=== PATIENT | female | born 1975 | race Two or more races ===

== ENCOUNTER → 2017-02-21 | Outpatient (REF) | payer OTHER | LOC: M SFHCPLAZ 11:09 | PROVIDERS: ATTEND Physician Assistant Medical | DX: R07.9 Chest pain, unspecified (principal) ==

== ENCOUNTER → 2018-03-06 | Outpatient (CLI) | payer OTHER | LOC: M SMT 14:31 | DX: J01.11 Acute recurrent frontal sinusitis (principal) | CPT/HCPCS: 71046 ==

== ENCOUNTER → 2018-04-16 | Outpatient (CLI) | payer OTHER ==
[2018-04-16 20:01] LABS: RHEUMATOID FACTOR QUANT < 10.0 IU/ML (<15.0)
[2018-04-16 20:01] LABS: C REACTIVE PROTEIN QUANTITATIV < 0.30 MG/DL (0.00-0.30)
[2018-04-16 20:09] LABS: ERYTHROCYTE SEDIMENTATION RATE 8 mm/hr (0-20)
[2018-04-24 00:06] LABS: HLA-B27 Negative (.)
[2018-04-24 00:06] LABS: CYCLIC CITRULLINATED PEPTIDE 10 units (0-19)
== END ==
LOC: M WUC 16:17
DX: M54.5 Low back pain (principal)

== ENCOUNTER → 2018-04-18 | Outpatient (CLI) | payer OTHER | LOC: M WUC 16:15 | DX: M54.5 Low back pain (principal) ==

== ENCOUNTER → 2018-08-21 | Outpatient (REF) | payer OTHER ==
[2018-08-21 09:42] LABS: IONIZED CALCIUM 4.7 MG/DL (4.5-5.3)
[2018-08-21 10:47] LABS: ERYTHROCYTE SEDIMENTATION RATE 9 mm/hr (0-20)
[2018-08-21 11:35] LABS: ANION GAP 4 MEQ/L (8-16); BLOOD UREA NITROGEN 12 MG/DL (7-18); C REACTIVE PROTEIN QUANTITATIV < 0.30 MG/DL (0.00-0.30); CALCIUM LEVEL 9.1 MG/DL (8.5-10.1); CARBON DIOXIDE LEVEL 30 MEQ/L (21-32); CHLORIDE LEVEL 109 MEQ/L (98-107); CPK CREATINE PHOSPHOKINASE 91 U/L (26-192); GLOMERULAR FILTRATION RATE > 60.0 (>58); GLUCOSE, FASTING 87 MG/DL (70-100); IRON (FE) 38 UG/DL (50-170); PERCENT SATURATION 7.6 % (13.2-45.0); POTASSIUM SERUM 4.3 MEQ/L (3.5-5.1); SODIUM LEVEL 143 MEQ/L (136-145); TOTAL IRON BINDING CAPACITY 497 UG/DL (250-450)
[2018-08-21 11:42] LABS: TOTAL 25(OH) VITAMIN D 17.9 NG/ML (30.0-100.0)
[2018-08-21 11:43] LABS: FOLATE 11.2 NG/ML
[2018-08-28 00:11] LABS: ACETYLCHOLINE RCPTOR BINDING A < 0.03 nmol/L (0.00-0.24); COPPER PLASMA 145 ug/dL (72-166); SELENIUM LEVEL BLOOD 268 ug/L (100-340); VITAMIN E(ALPHA TOCOPHEROL) 8.6 mg/L (7.0-25.1); VITAMIN E(GAMMA TOCOPHEROL) 1.2 mg/L (0.5-5.5); VITAMIN K1 0.16 ng/mL (0.13-1.88); ZINC PLASMA 84 ug/dL (56-134)
[2018-08-28 00:11] LABS: VITAMIN A, RETINOL LEVEL 38.4 ug/dL (33.1-100.0)
== END ==
LOC: M SFHCPLAZ 08:37
DX: M62.89 Other specified disorders of muscle (principal); Z98.890 Other specified postprocedural states
CPT/HCPCS: 82525

== ENCOUNTER → 2018-08-21 | Outpatient (CLI) | payer OTHER | LOC: M RAD 11:18 | DX: R41.844 Frontal lobe and executive function deficit (principal); G25.3 Myoclonus | CPT/HCPCS: 70551 ==

== ENCOUNTER → 2019-01-06 | Outpatient (CLI) | payer OTHER | LOC: M LAB 06:57 | PROVIDERS: ATTEND Physician Assistant Medical | DX: E16.2 Hypoglycemia, unspecified (principal) ==

== ENCOUNTER → 2019-01-13 | Outpatient (CLI) | payer OTHER ==
[~2019-01-13] MED LIST: PRAM1TAB7 PO
[2019-01-13 19:29] LABS: BASO # 0.1 10^3/uL (0.0-0.2); BASO % 0.8 % (0.0-1.0); EOS # 0.1 10^3/uL (0.0-0.50); EOS % 1.8 % (0.0-3.0); HEMATOCRIT 33.2 % (36.0-47.0); HEMOGLOBIN 9.9 g/dl (12.0-15.5); LYMPH # 1.5 10^3/uL (1.5-4.5); MEAN CORPUSCULAR HEMOGLOBIN 24.9 pg (27.0-33.0); MEAN CORPUSCULAR HGB CONC 29.8 g/dl (32.0-36.5); MEAN CORPUSCULAR VOLUME 83.4 fl (80.0-96.0); MONO # 0.6 10^3/uL (0.0-0.8); NEUTROPHILS # 5.7 10^3/uL (1.8-7.7); NEUTROPHILS % 71.1 % (36.0-66.0); PLATELET COUNT, AUTOMATED 300 10^3/uL (150-450); RED BLOOD COUNT 3.98 10^6/uL (4.00-5.40)
== END ==
LOC: M WUC 16:40
PROVIDERS: ATTEND Physician Assistant Medical
DX: D50.8 Other iron deficiency anemias (principal); Z98.84 Bariatric surgery status

== ENCOUNTER 2019-01-16 10:28 | Outpatient (CLI) | payer OTHER ==
[2019-01-16] VITALS (7 sets, daily range): BP systolic 97–112; BP diastolic 53–66
[~2019-01-16] VITALS: Ht 165.1 cm; Wt 63.6 kg
[2019-01-16] MEDS ORDERED: IRON SUCROSE 25 MG in NS 50 ML IV ONE (11:15)
[2019-01-16] MEDS ORDERED: IRON SUCROSE 225 MG in NS 250 ML IV ONE (11:15)
[2019-01-16] MEDS ORDERED: PRAM1TAB7 PO (11:27)
== END 2019-01-16 15:45 | disposition home or self-care (01) ==
LOC: M INFU 10:28
PROVIDERS: ATTEND Physician Assistant Medical
DX: D50.9 Iron deficiency anemia, unspecified (principal); Z88.5 Allergy status to narcotic agent
CPT/HCPCS: 96365; 96366; J1756

== ENCOUNTER → 2019-01-17 | Outpatient (CLI) | payer OTHER ==
[2019-01-17 16:44] LABS: BASO % 0.6 % (0.0-1.0); EOS # 0.1 10^3/uL (0.0-0.50); HEMATOCRIT 33.6 % (36.0-47.0); LYMPH # 1.6 10^3/uL (1.5-4.5); LYMPH % 25.3 % (24.0-44.0); MEAN CORPUSCULAR HEMOGLOBIN 24.9 pg (27.0-33.0); MEAN CORPUSCULAR HGB CONC 29.8 g/dl (32.0-36.5); MEAN CORPUSCULAR VOLUME 83.6 fl (80.0-96.0); MONO # 0.5 10^3/uL (0.0-0.8); MONO % 7.5 % (0.0-5.0); NEUTROPHILS # 4.1 10^3/uL (1.8-7.7); NEUTROPHILS % 64.3 % (36.0-66.0); PLATELET COUNT, AUTOMATED 309 10^3/uL (150-450); RED BLOOD COUNT 4.02 10^6/uL (4.00-5.40); WHITE BLOOD COUNT 6.4 10^3/uL (4.0-10.0)
== END ==
LOC: M WUC 14:58
PROVIDERS: ATTEND Family Medicine
DX: D50.8 Other iron deficiency anemias (principal); E53.8 Deficiency of other specified B group vitamins

== ENCOUNTER → 2019-01-29 | Outpatient (REF) | payer OTHER ==
[2019-01-29 12:37] LABS: MAGNESIUM LEVEL 2.6 MG/DL (1.8-2.4)
[2019-01-29 12:46] LABS: TOTAL 25(OH) VITAMIN D 11.2 NG/ML (30.0-100.0)
== END ==
LOC: M SFHCPLAZ 10:43
PROVIDERS: ATTEND Physician Assistant Medical
DX: Z98.890 Other specified postprocedural states (principal); G43.111 Migraine with aura, intractable, with status migrainosus

== ENCOUNTER 2019-02-03 09:01 | Outpatient (CLI) | payer OTHER ==
[2019-02-03] VITALS (7 sets, daily range): BP systolic 89–118; BP diastolic 50–61
[~2019-02-03] VITALS: Ht 165.1 cm; Wt 63.0 kg
[2019-02-03] MEDS ORDERED: ACETAMINOPHEN 500 MG TAB PO ONE (09:30)
[2019-02-03] MEDS ORDERED: IRON SUCROSE 225 MG in NS 250 ML IV ONE (10:00)
[2019-02-03] MEDS ORDERED: IRON SUCROSE 25 MG in NS 50 ML IV ONE (10:00)
== END 2019-02-03 14:45 | disposition home or self-care (01) ==
LOC: M INFU 09:01
PROVIDERS: ATTEND Physician Assistant Medical
DX: E61.1 Iron deficiency (principal); Z88.5 Allergy status to narcotic agent
CPT/HCPCS: 96365; 96366; J1756

== ENCOUNTER → 2019-05-22 | Outpatient (CLI) | payer OTHER | LOC: M WUC 08:55 | PROVIDERS: ATTEND Family Medicine | DX: G43.111 Migraine with aura, intractable, with status migrainosus (principal) ==

== ENCOUNTER → 2019-06-06 | Outpatient (CLI) | payer OTHER ==
--- NOTE | 2019-06-06 13:40 | REP ---
MAXILLOFACIAL CT STUDY WITHOUT CONTRAST: HISTORY: Paranasal sinus disease. COMPARISON: MRI study of the brain August 21, 2018. CT FINDINGS: There is mild to moderate mucosal thickening affecting the maxillary sinuses bilaterally. This appears somewhat more prominent than on the August 2018 MRI study. The paranasal sinuses are otherwise clear. Mastoid aeration is normal and symmetric. No intraorbital, deep facial, or intracranial soft tissue abnormality is seen. Coronal images demonstrate that the ostiomeatal complexes are patent bilaterally. There is some superomedial mucosal thickening in the left maxillary sinus which is adjacent to the left ostiomeatal complex just posterior to it. The nasal ethmoid recesses are intact. Nasal septum is in the midline. No nasal polyp is appreciated. IMPRESSION: Mild bilateral maxillary sinus mucosal thickening. Electronically Signed by Octavio Rios MD 06/06/2019 03:47 P
== END ==
LOC: M RAD 10:28
PROVIDERS: ATTEND Nurse Practitioner Adult Health
DX: J34.9 Unspecified disorder of nose and nasal sinuses (principal)

== ENCOUNTER 2019-06-12 10:40 | Emergency (ER) | payer OTHER ==
[~2019-06-12] VITALS: Ht 165.1 cm; Wt 65.9 kg
[2019-06-12] MEDS ORDERED: NS 1,000 ML IV ONE (10:45)
[2019-06-12 12:11] LABS: BASO % 0.9 % (0.0-1.0); EOS # 0.2 10^3/uL (0.0-0.50); EOS % 4.6 % (0.0-3.0); HEMATOCRIT 34.2 % (36.0-47.0); HEMOGLOBIN 10.7 g/dl (12.0-15.5); LYMPH # 1.5 10^3/uL (1.5-4.5); LYMPH % 32.2 % (24.0-44.0); MEAN CORPUSCULAR HEMOGLOBIN 27.3 pg (27.0-33.0); MEAN CORPUSCULAR HGB CONC 31.3 g/dl (32.0-36.5); MEAN CORPUSCULAR VOLUME 87.2 fl (80.0-96.0); MONO # 0.4 10^3/uL (0.0-0.8); NEUTROPHILS # 2.4 10^3/uL (1.8-7.7); NEUTROPHILS % 53.1 % (36.0-66.0); PLATELET COUNT, AUTOMATED 231 10^3/uL (150-450); RED BLOOD COUNT 3.92 10^6/uL (4.00-5.40); WHITE BLOOD COUNT 4.6 10^3/uL (4.0-10.0)
[2019-06-12 12:53] LABS: ALBUMIN 3.3 GM/DL (3.2-5.2); ALT/SGPT 36 U/L (12-78); BILIRUBIN,TOTAL 0.3 MG/DL (0.2-1.0); BLOOD UREA NITROGEN 12 MG/DL (7-18); CALCIUM LEVEL 8.4 MG/DL (8.5-10.1); CARBON DIOXIDE LEVEL 27 MEQ/L (21-32); CHLORIDE LEVEL 113 MEQ/L (98-107); CK-MB VALUE MASS < 1.0 NG/ML (<3.6); CPK CREATINE PHOSPHOKINASE 52 U/L (26-192); CREATININE FOR GFR 0.89 MG/DL (0.55-1.30); GLOMERULAR FILTRATION RATE > 60.0 (>58); GLUCOSE, FASTING 72 MG/DL (70-100); MB/CK RELATIVE INDEX 1.92 (< OR =4); POTASSIUM SERUM 4.3 MEQ/L (3.5-5.1); SODIUM LEVEL 144 MEQ/L (136-145); TROPONIN I < 0.02 NG/ML (< 0.10)
[2019-06-12 14:55] VITALS: BP 101/64
--- NOTE | 2019-06-14 07:30 | ECGEPIP ---
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
== END 2019-06-12 14:57 | disposition home or self-care (01) ==
LOC: M ED 10:40
DX: E16.2 Hypoglycemia, unspecified (principal); R00.1 Bradycardia, unspecified; G43.909 Migraine, unspecified, not intractable, without status migrainosus; Z98.84 Bariatric surgery status; Z88.8 Allergy status to other drugs, medicaments and biological substances; Z88.5 Allergy status to narcotic agent; Z79.899 Other long term (current) drug therapy

== ENCOUNTER → 2019-07-29 | Outpatient (CLI) | payer OTHER ==
[~2019-07-29] MED LIST changes: +AQUADRO PO
--- NOTE | 2019-07-29 08:01 | REP ---
Clinical: Epigastric pain. Technique: Real time arreguin scale ultrasound evaluation using curved array transducer. Findings: Liver and pancreas are normal in contour, size, echogenicity without focal hepatic or pancreatic lesions identified. The gallbladder is normal and without gallstones, wall thickening, or pericholecystic fluid. No biliary ductal dilatation is appreciated and the common bile duct measures 2.1 mm diameter. The right kidney is normal in reniform shape and appearance without hydronephrosis and measures 10.7 x 4.6 x 3.9 cm. No ascites. Impression: Normal limited abdominal ultrasound. Electronically Signed by Ankit Bloom MD 07/29/2019 07:52 A
== END ==
LOC: M RAD 07:04
PROVIDERS: ATTEND Physician Assistant Medical
DX: R10.13 Epigastric pain (principal)

== ENCOUNTER → 2019-09-08 | Outpatient (REF) | payer OTHER ==
[2019-09-08 12:53] LABS: BASO % 0.7 % (0.0-1.0); EOS # 0.2 10^3/uL (0.0-0.5); EOS % 3.5 % (0.0-3.0); HEMATOCRIT 37.6 % (36.0-47.0); HEMOGLOBIN 11.1 g/dl (12.0-15.5); LYMPH # 1.2 10^3/uL (1.5-5.0); LYMPH % 26.1 % (24.0-44.0); MEAN CORPUSCULAR HEMOGLOBIN 26.2 pg (27.0-33.0); MEAN CORPUSCULAR HGB CONC 29.5 g/dl (32.0-36.5); MEAN CORPUSCULAR VOLUME 88.7 fl (80.0-96.0); MONO # 0.3 10^3/uL (0.0-0.8); MONO % 7.4 % (0.0-5.0); NEUTROPHILS # 2.9 10^3/uL (1.5-8.5); NEUTROPHILS % 62.1 % (36.0-66.0); PLATELET COUNT, AUTOMATED 278 10^3/uL (150-450); RED BLOOD COUNT 4.24 10^6/uL (4.00-5.40); WHITE BLOOD COUNT 4.6 10^3/uL (4.0-10.0)
[2019-09-08 13:15] LABS: FREE T4 0.98 NG/DL (0.76-1.46); PERCENT SATURATION 8.2 % (13.2-45.0); THYROID STIMULATING HORMONE 0.921 uIU/ML (0.358-3.740)
[2019-09-08 15:40] LABS: TOTAL 25(OH) VITAMIN D 16.3 NG/ML (30.0-100.0)
== END ==
LOC: M SFHCPLAZ 08:30
PROVIDERS: ATTEND Physician Assistant Medical
DX: E61.1 Iron deficiency (principal); F41.9 Anxiety disorder, unspecified; Z98.890 Other specified postprocedural states

== ENCOUNTER 2019-09-22 08:16 | Outpatient (CLI) | payer OTHER ==
[2019-09-22] VITALS (10 sets, daily range): BP systolic 91–105; BP diastolic 53–68
[~2019-09-22] VITALS: Ht 165.1 cm; Wt 68.0 kg
[~2019-09-22 08:16] MED LIST changes: +BUPR300T34 PO
[2019-09-22] MEDS ORDERED: ACETAMINOPHEN 325 MG TAB PO ONE (10:00)
[2019-09-22] MEDS ORDERED: diphenhydrAMINE 25 MG PO PO ONE (10:00)
[2019-09-22] MEDS ORDERED: FERRIC CARBOXYMALTOSE INJ 750 MG in NS 250 ML IV ONE (10:00)
[2019-09-22] MEDS ORDERED: [UNRECOGNIZED DRUG - CODE] IV (15:09)
== END 2019-09-22 15:30 | disposition home or self-care (01) ==
LOC: M INFU 08:16
PROVIDERS: ATTEND Physician Assistant Medical
DX: D50.9 Iron deficiency anemia, unspecified (principal); Z88.5 Allergy status to narcotic agent; Z88.8 Allergy status to other drugs, medicaments and biological substances
CPT/HCPCS: 96365; 96366; J1439

== ENCOUNTER → 2019-12-23 | Outpatient (REF) | payer OTHER ==
[~2019-12-23] MED LIST changes: -BUPR300T34 PO; +BUPR300T92 PO; +[UNRECOGNIZED DRUG - CODE] IV
[2019-12-23 12:44] LABS: BASO % 0.9 % (0.0-1.0); EOS # 0.3 10^3/uL (0.0-0.5); EOS % 7.4 % (0.0-3.0); HEMATOCRIT 43.8 % (36.0-47.0); HEMOGLOBIN 14.5 g/dl (12.0-15.5); LYMPH # 1.3 10^3/uL (1.5-5.0); MEAN CORPUSCULAR HEMOGLOBIN 30.7 pg (27.0-33.0); MEAN CORPUSCULAR HGB CONC 33.1 g/dl (32.0-36.5); MEAN CORPUSCULAR VOLUME 92.8 fl (80.0-96.0); MONO # 0.2 10^3/uL (0.0-0.8); NEUTROPHILS # 1.7 10^3/uL (1.5-8.5); NEUTROPHILS % 49.7 % (36.0-66.0); PLATELET COUNT, AUTOMATED 214 10^3/uL (150-450); RED BLOOD COUNT 4.72 10^6/uL (4.00-5.40); WHITE BLOOD COUNT 3.5 10^3/uL (4.0-10.0)
[2019-12-23 12:56] LABS: ALBUMIN 4.1 GM/DL (3.2-5.2); ALT/SGPT 25 U/L (12-78); BILIRUBIN,TOTAL 0.3 MG/DL (0.2-1.0); BLOOD UREA NITROGEN 11 MG/DL (7-18); CALCIUM LEVEL 8.5 MG/DL (8.5-10.1); CARBON DIOXIDE LEVEL 23 MEQ/L (21-32); CHLORIDE LEVEL 115 MEQ/L (98-107); CREATININE FOR GFR 0.94 MG/DL (0.55-1.30); FERRITIN 140 NG/ML (8-252); GLOMERULAR FILTRATION RATE > 60.0 (>58); GLUCOSE, FASTING 82 MG/DL (70-100); IRON (FE) 94 UG/DL (50-170); POTASSIUM SERUM 3.9 MEQ/L (3.5-5.1); SODIUM LEVEL 143 MEQ/L (136-145); TOTAL PROTEIN 6.7 GM/DL (6.4-8.2)
[2019-12-23 13:02] LABS: PTH INTACT 124.7 PG/ML (18.5-88.0); TOTAL 25(OH) VITAMIN D 22.2 NG/ML (30.0-100.0); VITAMIN B12 LEVEL 421 PG/ML (247-911)
== END ==
LOC: M SFHCPLAZ 09:12
PROVIDERS: ATTEND Physician Assistant Medical
DX: E61.1 Iron deficiency (principal); E55.9 Vitamin D deficiency, unspecified; Z98.890 Other specified postprocedural states

== ENCOUNTER → 2020-04-13 | Outpatient (CLI) | payer OTHER ==
--- NOTE | 2020-04-14 02:27 | REPPI ---
Clinical: Arthralgia. Technique: Internal rotation, external rotation, and Y view of the right shoulder. Findings: Generalized age-related changes are appreciated without overt osteoarthritic or obvious inflammatory arthritic changes. No acute fracture dislocation. Subacromial space is normal. No periarticular calcifications or loose bodies noted. Impression: Generalized age-related changes. Electronically Signed by Ankit Bloom MD 04/14/2020 02:17 A
== END ==
LOC: M PLAIMG 15:51
PROVIDERS: ATTEND Physician Assistant Medical
DX: M25.511 Pain in right shoulder (principal)

== ENCOUNTER → 2020-08-20 | Outpatient (CLI) | payer OTHER ==
[2020-08-20 17:09] LABS: BASO # 0.1 10^3/uL (0.0-0.2); BASO % 0.8 % (0.0-1.0); EOS # 0.2 10^3/uL (0.0-0.5); EOS % 2.7 % (0.0-3.0); HEMATOCRIT 42.2 % (36.0-47.0); HEMOGLOBIN 13.2 g/dl (12.0-15.5); LYMPH # 1.6 10^3/uL (1.5-5.0); LYMPH % 24.2 % (24.0-44.0); MEAN CORPUSCULAR HGB CONC 31.3 g/dl (32.0-36.5); MEAN CORPUSCULAR VOLUME 99.1 fl (80.0-96.0); MONO # 0.4 10^3/uL (0.0-0.8); MONO % 5.8 % (0.0-5.0); NEUTROPHILS # 4.4 10^3/uL (1.5-8.5); NEUTROPHILS % 66.2 % (36.0-66.0); PLATELET COUNT, AUTOMATED 266 10^3/uL (150-450); RED BLOOD COUNT 4.26 10^6/uL (4.00-5.40); WHITE BLOOD COUNT 6.6 10^3/uL (4.0-10.0)
[2020-08-20 17:19] LABS: FREE T4 0.9 NG/DL (0.76-1.46); PERCENT SATURATION 22.9 % (13.2-45.0); THYROID STIMULATING HORMONE 0.741 uIU/ML (0.358-3.740)
[2020-08-20 17:21] LABS: PTH INTACT 100.6 PG/ML (18.5-88.0); TOTAL 25(OH) VITAMIN D 36.1 NG/ML (30.0-100.0)
[2020-08-20 17:22] LABS: FOLATE 8.9 NG/ML (>5.4)
== END ==
LOC: M WUC 15:18
PROVIDERS: ATTEND Nurse Practitioner Family
DX: R53.83 Other fatigue (principal); E53.8 Deficiency of other specified B group vitamins; E55.9 Vitamin D deficiency, unspecified; Z98.890 Other specified postprocedural states

== ENCOUNTER → 2021-02-03 | Outpatient (REF) | payer OTHER ==
[2021-02-03 13:57] LABS: EOS # 0.1 10^3/uL (0.0-0.5); HEMOGLOBIN 15.4 g/dl (12.0-15.5); LYMPH # 1.3 10^3/uL (1.5-5.0); LYMPH % 33.2 % (24.0-44.0); MEAN CORPUSCULAR HGB CONC 32.1 g/dl (32.0-36.5); MEAN CORPUSCULAR VOLUME 99.6 fl (80.0-96.0); MONO # 0.2 10^3/uL (0.0-0.8); MONO % 5.5 % (2.0-8.0); NEUTROPHILS # 2.3 10^3/uL (1.5-8.5); NEUTROPHILS % 57.1 % (36.0-66.0); PLATELET COUNT, AUTOMATED 253 10^3/uL (150-450); RED BLOOD COUNT 4.82 10^6/uL (4.00-5.40)
[2021-02-03 14:32] LABS: ALBUMIN 4.2 GM/DL (3.2-5.2); ALT/SGPT 32 U/L (12-78); BILIRUBIN,TOTAL 0.4 MG/DL (0.2-1.0); BLOOD UREA NITROGEN 13 MG/DL (7-18); CALCIUM LEVEL 9.3 MG/DL (8.5-10.1); CARBON DIOXIDE LEVEL 28 MEQ/L (21-32); CHLORIDE LEVEL 111 MEQ/L (98-107); CREATININE FOR GFR 1.03 MG/DL (0.55-1.30); FERRITIN 78 NG/ML (8-252); GLOMERULAR FILTRATION RATE > 60.0 (>58); GLUCOSE, FASTING 88 MG/DL (70-100); IRON (FE) 134 UG/DL (50-170); POTASSIUM SERUM 4.2 MEQ/L (3.5-5.1); SODIUM LEVEL 142 MEQ/L (136-145)
== END ==
LOC: M SFHCPLAZ 09:44
PROVIDERS: ATTEND Physician Assistant Medical
DX: E61.1 Iron deficiency (principal); G43.519 Persistent migraine aura without cerebral infarction, intractable, without status migrainosus

== ENCOUNTER → 2021-02-24 | Outpatient (REF) | payer OTHER ==
[2021-02-24 14:31] LABS: FOLLICLE STIMULATING HORMONE 99.7 mIU/mL; FREE T4 0.84 NG/DL (0.76-1.46); LUTEINIZING HORMONE 66.6 mIU/mL; THYROID STIMULATING HORMONE 0.899 uIU/ML (0.358-3.740)
== END ==
LOC: M SFHCPLAZ 10:12
PROVIDERS: ATTEND Physician Assistant Medical
DX: E53.8 Deficiency of other specified B group vitamins (principal); G43.519 Persistent migraine aura without cerebral infarction, intractable, without status migrainosus

== ENCOUNTER → 2021-03-14 | Outpatient (CLI) | payer OTHER ==
--- NOTE | 2021-03-14 14:01 | REP ---
INDICATION: RUQ PAIN, EVAL FOR GALL STONES COMPARISON: 07/29/2019 TECHNIQUE: Real time arreguin scale ultrasound examination using curved array transducer. FINDINGS: Liver is normal in contour, size, and echogenicity without focal hepatic lesions identified. Pancreas is incompletely evaluated due to interposed bowel gas. The gallbladder is normal and without gallstones, wall thickening, or pericholecystic fluid. No biliary ductal dilatation is appreciated and the common bile duct measures 2.8 mm diameter. Right kidney is normal in reniform shape without hydronephrosis and measures 10.5 x 4.5 x 3.8 cm. No ascites in the visualized right upper quadrant. IMPRESSION: Normal limited right upper quadrant ultrasound <Electronically signed by Ankit Bloom > 03/14/21 [id number]
== END ==
LOC: M RAD 07:46
PROVIDERS: ATTEND Surgery
DX: R10.11 Right upper quadrant pain (principal)

== ENCOUNTER → 2021-05-27 | Outpatient (CLI) | payer OTHER ==
[2021-05-27 13:33] LABS: HEMATOCRIT 44.6 % (36.0-47.0)
[2021-05-27 14:14] LABS: ALT/SGPT 49 U/L (12-78); BILIRUBIN,TOTAL 0.4 MG/DL (0.2-1.0); BLOOD UREA NITROGEN 16 MG/DL (7-18); CARBON DIOXIDE LEVEL 28 MEQ/L (21-32); CHLORIDE LEVEL 108 MEQ/L (98-107); CHOLESTEROL LEVEL 196 MG/DL (<200); CHOLESTEROL RISK RATIO 3.266 (<5); CREATININE FOR GFR 0.96 MG/DL (0.55-1.30); FERRITIN 120 NG/ML (8-252); GLOMERULAR FILTRATION RATE > 60.0 (>58); GLUCOSE, FASTING 65 MG/DL (70-100); HDL CHOLESTEROL 60 MG/DL (>40); IRON (FE) 113 UG/DL (50-170); LDL CHOLESTEROL 126 MG/DL (<100); NON-HDL-C 136 MG/DL; POTASSIUM SERUM 4.7 MEQ/L (3.5-5.1); SODIUM LEVEL 141 MEQ/L (136-145); TOTAL 25(OH) VITAMIN D 22.6 NG/ML (30.0-100.0); TOTAL PROTEIN 7.1 GM/DL (6.4-8.2); TRIGLYCERIDES LEVEL 51 MG/DL (<150); VITAMIN B12 LEVEL 387 PG/ML (247-911)
== END ==
LOC: M PLALAB 10:46
PROVIDERS: ATTEND Physician Assistant Medical
DX: Z98.890 Other specified postprocedural states (principal); Z13.220 Encounter for screening for lipoid disorders; G43.519 Persistent migraine aura without cerebral infarction, intractable, without status migrainosus; E55.9 Vitamin D deficiency, unspecified; E61.1 Iron deficiency

== ENCOUNTER 2021-07-14 12:35 | Emergency (ER) | payer OTHER ==
[~2021-07-14] VITALS: Ht 170.2 cm; Wt 58.1 kg
[2021-07-14 12:36] VITALS: BP 118/72
[2021-07-14] MEDS ORDERED: TOPI50TA9 (12:46)
[2021-07-14] MEDS ORDERED: OMEP-221 (12:46)
[2021-07-14] MEDS ORDERED: dexameTHASONE 20MG/5ML VIAL (J1100 PER 1MG) IV ONE (15:00)
== END 2021-07-14 15:15 | disposition left against medical advice (07) ==
LOC: M ED 12:35
DX: Z53.21 Procedure and treatment not carried out due to patient leaving prior to being seen by health care provider (principal)

== ENCOUNTER → 2022-11-08 | Outpatient (CLI) | payer OTHER ==
[~2022-11-08] MED LIST changes: +E-Z-GAS II EFFERVESCENT PACKET (SODIUM BICARB./CITRIC ACID/SIMETHICONE) As Ordered ONE; +E-Z-HD 98% w/w 340GM SUSP BTL As Ordered ONE; +E-Z-PAQUE 96% w/w SUSP 176GM BTL As Ordered ONE; +OMEP40CA5; +TOPI50TA9
== END ==
LOC: M RAD 08:57
PROVIDERS: ATTEND Internal Medicine
DX: K30 Functional dyspepsia (principal)

== ENCOUNTER → 2022-11-29 | Outpatient (REF) | payer OTHER ==
[~2022-11-29] MED LIST changes: -E-Z-GAS II EFFERVESCENT PACKET (SODIUM BICARB./CITRIC ACID/SIMETHICONE) As Ordered ONE; -E-Z-HD 98% w/w 340GM SUSP BTL As Ordered ONE; -E-Z-PAQUE 96% w/w SUSP 176GM BTL As Ordered ONE
== END ==
LOC: M LAB REF 12:29
PROVIDERS: ATTEND Internal Medicine
DX: R10.9 Unspecified abdominal pain (principal); Z98.84 Bariatric surgery status

== ENCOUNTER → 2023-08-08 | Outpatient (CLI) | payer OTHER ==
[~2023-08-08] MED LIST changes: +TOPI-254; -TOPI50TA9
== END ==
LOC: M WUC 12:20
PROVIDERS: ATTEND Nurse Practitioner Family
DX: M79.671 Pain in right foot (principal)

== ENCOUNTER → 2023-11-19 | Outpatient (REF) | payer OTHER ==
[~2023-11-19] MED LIST changes: +TOPI-21; -TOPI-254
[2023-11-19 17:18] LABS: FERRITIN 11.9 NG/ML (7.3-270.7)
[2023-11-19 17:20] LABS: TOTAL 25(OH) VITAMIN D 21.9 NG/ML (20.0-100.0)
[2023-11-19 17:21] LABS: FOLATE 13.5 NG/ML (>5.4)
== END ==
LOC: M LAB REF 16:12
PROVIDERS: ATTEND Internal Medicine
DX: G43.909 Migraine, unspecified, not intractable, without status migrainosus (principal); Z98.84 Bariatric surgery status

== ENCOUNTER → 2024-03-04 | Outpatient (REF) | payer OTHER | LOC: M SFHCWAGY 14:57 | PROVIDERS: ATTEND Nurse Practitioner Family | DX: Z12.4 Encounter for screening for malignant neoplasm of cervix (principal); Z11.51 Encounter for screening for human papillomavirus (HPV); Z01.419 Encounter for gynecological examination (general) (routine) without abnormal findings ==

== ENCOUNTER → 2024-03-12 | Outpatient (REF) | payer OTHER ==
[~2024-03-12] MED LIST changes: +BUPR-597 PO; -BUPR300T92 PO
== END ==
LOC: M LAB REF 13:10
PROVIDERS: ATTEND Internal Medicine
DX: Z98.84 Bariatric surgery status (principal)

== ENCOUNTER → 2024-04-10 | Outpatient (CLI) | payer OTHER | LOC: M WUC 15:23 | PROVIDERS: ATTEND Internal Medicine | DX: J30.9 Allergic rhinitis, unspecified (principal) ==

== ENCOUNTER → 2024-05-12 | Outpatient (REF) | payer OTHER ==
[2024-05-12 17:20] LABS: FOLLICLE STIMULATING HORMONE 103.4 mIU/ML; LUTEINIZING HORMONE 50.3 mIU/ML
== END ==
LOC: M LAB REF 16:13
PROVIDERS: ATTEND Internal Medicine
DX: Z98.84 Bariatric surgery status (principal); R53.83 Other fatigue; N95.1 Menopausal and female climacteric states

== ENCOUNTER → 2024-07-17 | Outpatient (REF) | payer OTHER | LOC: M LAB REF 16:38 | PROVIDERS: ATTEND Internal Medicine | DX: R53.83 Other fatigue (principal) ==

== ENCOUNTER → 2024-07-29 | Outpatient (CLI) | payer OTHER | LOC: M RAD 08:59 | PROVIDERS: ATTEND Physician Assistant | DX: J32.8 Other chronic sinusitis (principal) ==

== ENCOUNTER → 2025-01-01 | Outpatient (REF) | payer OTHER ==
[2025-01-02 14:44] LABS: FERRITIN 6.8 NG/ML (7.3-270.7)
[2025-01-02 14:45] LABS: FOLATE 11.2 NG/ML (>5.4)
== END ==
LOC: M LAB REF 12:28
PROVIDERS: ATTEND Internal Medicine
DX: R53.83 Other fatigue (principal); Z98.84 Bariatric surgery status

== ENCOUNTER → 2025-01-15 | Outpatient (CLI) | payer OTHER ==
[~2025-01-15] MED LIST changes: +PROHANCE 279.3MG/ML 15ML VIAL ONE
== END ==
LOC: M PLAIMG 07:25
PROVIDERS: ATTEND Psychiatry & Neurology Neurology
DX: G00-G99 Diseases of the nervous system (principal); M48.02 Spinal stenosis, cervical region; M50.022 Cervical disc disorder at C5-C6 level with myelopathy
CPT/HCPCS: 70544; 72156; A9576

== ENCOUNTER → 2025-05-11 | Outpatient (CLI) | payer OTHER ==
[~2025-05-11] MED LIST changes: -BUPR-597 PO; +BUPR-766 PO; -PROHANCE 279.3MG/ML 15ML VIAL ONE
[2025-05-11 13:44] LABS: ESTIMATED AVERAGE GLUCOSE 103.0 MG/DL (60-110)
[2025-05-11 13:54] LABS: C REACTIVE PROTEIN QUANTITATIV < 0.50 MG/DL (<1.0)
[2025-05-11 13:55] LABS: ALT/SGPT 26 U/L (7.0-40); AST/SGOT 26 U/L (<34); CALCIUM LEVEL 9.8 MG/DL (8.5-10.1); CARBON DIOXIDE LEVEL 27 MMOL/L (20-31); CHLORIDE LEVEL 105 MMOL/L (98-107); CHOLESTEROL LEVEL 210 MG/DL (<200); CHOLESTEROL RISK RATIO 3.00 (<5); CREATININE FOR GFR 1.16 MG/DL (0.55-1.30); GLOMERULAR FILTRATION RATE 57.4 (>51); IRON (FE) 81 UG/DL (50-170); LDL CHOLESTEROL 128.1 MG/DL (<100); MAGNESIUM LEVEL 2.3 MG/DL (1.8-2.4); NON-HDL-C 140.1 MG/DL; PERCENT SATURATION 21.1 % (13.2-45.0); POTASSIUM SERUM 3.9 MMOL/L (3.5-5.1); SODIUM LEVEL 140 MMOL/L (136-145); TRIGLYCERIDES LEVEL 60 MG/DL (<150)
[2025-05-11 13:56] LABS: THYROID PEROXIDASE ANTIBODY 52 U/ML (<60.0)
[2025-05-11 13:57] LABS: FREE T4 1.26 NG/DL (0.89-1.76)
[2025-05-14 20:10] LABS: LYME TOTAL ANTIBODY CIA <= 0.90 Index (<=0.90)
== END ==
LOC: M WUC 10:25
PROVIDERS: ATTEND Nurse Practitioner Family
DX: U09.9 Post COVID-19 condition, unspecified (principal); G43.001 Migraine without aura, not intractable, with status migrainosus; F51.8 Other sleep disorders not due to a substance or known physiological condition; Z73.3 Stress, not elsewhere classified